=== PATIENT | female | born 1980 | race Caucasian/White ===

== ENCOUNTER 2021-06-20 21:22 | Inpatient (IN) | payer OTHER ==
[~2021-06-20] VITALS: Ht 160 cm; Wt 56.8 kg
[2021-06-20] MEDS ORDERED: magnesium 4gm in 100ml NS 100 ML IV PRN (22:15)
[2021-06-20] MEDS ORDERED: acetaminophen 325mg tablet PO PRN (22:15)
[2021-06-20] MEDS ORDERED: magnesium Cl slow-release 64mg tablet PO PRN (22:15)
[2021-06-20] MEDS ORDERED: potassium Cl 20 mEq SR tablet PO PRN (22:15)
[2021-06-20] MEDS ORDERED: magnesium 2GM in 50ml NS 50 ML IV PRN (22:15)
[2021-06-20] MEDS ORDERED: potassium CL 10mEq/100ml bag 100 ML IV PRN (22:15)
[2021-06-20] MEDS ORDERED: magnesium hydroxide 30ml (MOM) UD suspension PO PRN (22:15)
[2021-06-20] MEDS ORDERED: ondansetron/PF 4mg/2ml inj IV PRN (22:15)
[2021-06-20] MEDS: normal saline 1000ml 1,000 ML IV SCH (22:36)
[2021-06-20] MEDS: HYDROmorphone inj. 0.5 MG/0.5 ML DISP.SYRIN IV PRN (22:44)
[2021-06-20 22:48] LABS: MAGNESIUM 1.8 MG/DL (1.5-2.4); POTASSIUM 3.3 MMOL/L (3.5-5.1)
--- NOTE | 2021-06-20 23:05 | NUR ---
Patient in room [facility]. I have received report from DULCE RN in ER and had the opportunity to ask questions and assume patient care. Patient will be taken to OR for a raptured appendix.
[2021-06-20] MEDS ORDERED: BIRTH CONTROL PO (23:07)
[2021-06-21] VITALS (18 sets, daily range): BP systolic 99–121; BP diastolic 51–80
[2021-06-21] MEDS: piperacillin/tazo 3.375gm/50ml 50 ML IV SCH ×4 (00:03→23:47)
[2021-06-21] MEDS: HYDROmorphone/PF 0.2 MG/ML SYRINGE IV PRN ×4 (00:27→10:10)
[2021-06-21] MEDS ORDERED: hydrALAZINE 20mg/ml inj. IV PRN ×2 (01:15→09:45)
[2021-06-21] MEDS ORDERED: ondansetron/PF 4mg/2ml inj IV PRN ×2 (01:15→09:20)
[2021-06-21] MEDS ORDERED: labetalol 20mg/4ml (5mg/ml) syringe IV PRN ×2 (01:15→09:45)
[2021-06-21] MEDS ORDERED: HYDROmorphone/PF 0.2 MG/ML SYRINGE IV PRN ×3 (01:15→09:45)
[2021-06-21] MEDS ORDERED: ringers solution, lacted 1,000 ML IV SCH (01:15)
[2021-06-21] MEDS ORDERED: fentaNYL/PF 50MCG/1 ML 2ML syringe IV PRN ×3 (01:15→09:45)
[2021-06-21] MEDS ORDERED: BUPIVAcaine 0.5% inj/PF 30 ML ONE (06:02)
[2021-06-21 06:09] LABS: POTASSIUM 3.4 MMOL/L (3.5-5.1)
--- NOTE | 2021-06-21 06:11 | NUR ---
Student Medication Administration: For this medication-pass time frame, all medication were reviewed, dispensed, administered and documented per hospital policy by ADIA RAYO. Addendum: 06/21/21 at 0629 by Za Oakley RN daia abdi
--- NOTE | 2021-06-21 06:11 | NUR ---
Student documentation: I have reviewed and agree with all interventions, assessments performed and documented by LAVON RAYO. Addendum: 06/21/21 at 0629 by Za Oakley RN LAVON SALGADO
--- NOTE | 2021-06-21 06:12 | NUR ---
Problems reprioritized. Patient report given, questions answered & plan of care reviewed with REZA RAYO.
--- NOTE | 2021-06-21 06:17 | NUR ---
Patient in room [facility]. I have received report from GIRMA Mendenhall and had the opportunity to ask questions and assume patient care.
[2021-06-21 06:37] LABS: APTT 28 SECONDS (22-32)
[2021-06-21] MEDS: potassium Cl 20 mEq SR tablet PO PRN ×3 (07:03→23:46)
[2021-06-21] MEDS: docusate sod 100mg capsule PO SCH ×2 (07:13→20:05)
[2021-06-21] MEDS ORDERED: midazolam 1 mg/ML 2ml injection ONE (07:39)
[2021-06-21] MEDS ORDERED: FENTANYL CITRATE/PF 50 MCG/1 ML VIAL ONE (07:39)
[2021-06-21] MEDS ORDERED: glycopyrrolate 0.2mg/ml inj ONE (07:40)
[2021-06-21] MEDS ORDERED: LIDOcaine 2% (20mg/ml) 5ml vial ONE (07:40)
[2021-06-21] MEDS ORDERED: propofol inj 20 ML IV ONE (07:40)
[2021-06-21] MEDS ORDERED: ondansetron/PF 4mg/2ml inj ONE (07:41)
[2021-06-21] MEDS ORDERED: rocuronium 10mg/ml inj IV ONE (07:41)
[2021-06-21] MEDS ORDERED: neostigmine methylsulfate 1 MG/ML 10ml vial ONE (07:41)
[2021-06-21] MEDS: K and/or MAG REPLACEMENT MC SCH ×2 (08:04→20:22)
[2021-06-21] MEDS ORDERED: sevoflurane 250ml liquid IH ONE (08:05)
[2021-06-21] MEDS ORDERED: dexamethasone sod phosphate 10mg/ml inj ONE (08:05)
[2021-06-21] MEDS: normal saline 1000ml 1,000 ML IV SCH ×2 (08:20→10:44)
[2021-06-21] MEDS ORDERED: metoprolol tartrate 1mg/ml inj IV ONE (08:22)
--- NOTE | 2021-06-21 08:58 | NUR ---
Arrived in pt's room for hourly rounding. Pt sent to OR without prior notice. Called to give report, spoke to Rishabh, "nope, we are good"- refused report. CN notified.
[2021-06-21] MEDS ORDERED: HYDROcodone/acetaminophen 5mg/325mg tablet PO PRN (09:20)
--- NOTE | 2021-06-21 09:20 | NUR ---
Received from OR via BED, 20G TO RIGHT AC, LAP SITES X3 WITH BAINDAIDS CYNTHIA DRAIN WITH BLOODY DRAINAGE., accompanied by Anesthesiologist DR MCINTYRE and report given by Anesthesiolgist. Addendum: 06/21/21 at 0940 by Alesha Menchaca RN Amended: Links added.
[2021-06-21] MEDS: fentaNYL/PF 50MCG/1 ML 2ML syringe IV PRN ×2 (09:56→10:10)
[2021-06-21] MEDS: potassium CL 20mEq in D5-1/2NS 1,000 ML IV SCH ×3 (10:37→21:40)
--- NOTE | 2021-06-21 10:41 | NUR ---
PATIENT HAS MET ALL CRITERIA FOR TRANSFER TO THE SURGICAL FLOOR. VSS. DRESSINGS X3 TO LAP SITES INTACT CYNTHIA DRAIN WITH SERO-SANG. BED LOW, CALL LIGHT PRESENT AND 2 RAILS UP. RN PRESENT TO ACCEPT CARE OF PATIENT AND REPORT HAS BEEN CALLED. ALL QUESTIONS ANSWERED TO ACCEPTING RN. Addendum: 06/21/21 at 1042 by Alesha Menchaca RN Amended: Links added.
[2021-06-21] MEDS: HYDROmorphone inj. 0.5 MG/0.5 ML DISP.SYRIN IV PRN ×2 (10:44→13:27)
[2021-06-21] MEDS ORDERED: naloxone 0.4 mg/ml inj IV PRN (15:40)
[2021-06-21] MEDS: HYDROmorph./NS 0.2 mg/ml CADD 50 ML IV SCH ×5 (16:40→23:00)
--- NOTE | 2021-06-21 18:40 | NUR ---
Patient in room [facility]. I have received report from Amy Rodriguez RN and had the opportunity to ask questions and assume patient care.
[2021-06-21] MEDS: ketorolac tromethamine 15mg/ml inj. IV PRN (18:59)
--- NOTE | 2021-06-21 19:07 | NUR ---
EVAPORATOR OPERATOR MOLASSES pump reading inadvertently cleared. Total mg infused not documented. Pharmacy notified. CN Nurse notified.
[2021-06-21] MEDS ORDERED: ketorolac trometh. 30mg/ml inj. IV SCH (20:00)
--- NOTE | 2021-06-21 20:00 | NUR ---
1900 cadd pump setting were done by day nurse. 1999 settings =38.7mg in cassette, 0.2 demand dose [id number],5/5 for 2.00mg used.
[2021-06-21] MEDS: enoxaparin 40mg/0.4ml syringe SUBCUT SCH (20:21)
[2021-06-21] MEDS: ALPRAZolam 0.25mg tablet PO PRN (21:39)
[2021-06-22] VITALS: BP 117/74
[2021-06-22] MEDS: HYDROmorph./NS 0.2 mg/ml CADD 50 ML IV SCH ×12 (01:00→23:00)
[2021-06-22] MEDS: ketorolac tromethamine 15mg/ml inj. IV PRN ×4 (02:25→21:28)
[2021-06-22] MEDS: normal saline 1000ml 1,000 ML IV SCH ×2 (04:15→14:15)
[2021-06-22] MEDS: potassium CL 20mEq in D5-1/2NS 1,000 ML IV SCH ×3 (04:53→21:45)
[2021-06-22] MEDS: ALPRAZolam 0.25mg tablet PO PRN ×2 (05:30→21:26)
--- NOTE | 2021-06-22 06:32 | NUR ---
Problems reprioritized. Patient report given, questions answered & plan of care reviewed with Amy Dale RN.
[2021-06-22 06:36] LABS: BASOPHILS # (AUTO) 0.1 X10'3 (0-0.2); BASOPHILS % (AUTO) 0.5 % (0-1); EOSINOPHILS % (AUTO) 0.1 % (0-6); HEMATOCRIT 32.9 % (35.0-45.0); LYMPHOCYTES # (AUTO) 0.5 X10'3 (1.1-4.8); LYMPHOCYTES % (AUTO) 4.3 % (21-51); MEAN CORPUSCULAR HEMOGLOBIN 30.8 PG (27.0-31.0); MEAN CORPUSCULAR HGB CONC 33.3 g/dL (33.0-36.5); MEAN CORPUSCULAR VOLUME 92.3 FL (78-98); MEAN PLATELET VOLUME 8.6 FL (7.4-10.4); MONOCYTES # (AUTO) 0.7 X10'3 (0-0.9); MONOCYTES % (AUTO) 6.7 % (2-12); NEUTROPHILS # (AUTO) 9.8 X10'3 (1.8-7.7); NEUTROPHILS % (AUTO) 88.4 % (42-75); PLATELET COUNT 278 X10'3 (140-440); RED BLOOD COUNT 3.56 X10'6 (4.20-5.60); WHITE BLOOD COUNT 11.1 X10'3 (4.5-11.0)
[2021-06-22 06:43] LABS: POTASSIUM 4.2 MMOL/L (3.5-5.1)
--- NOTE | 2021-06-22 06:44 | NUR ---
Patient in room [facility]. I have received report from GIRMA Mackenzie and had the opportunity to ask questions and assume patient care.
[2021-06-22] MEDS: mag hydrox/Alum hydrox/simeth 30ml oral suspension PO PRN ×3 (06:45→21:24)
[2021-06-22 07:00] VITALS: BP 122/69
[2021-06-22] MEDS: piperacillin/tazo 3.375gm/50ml 50 ML IV SCH ×3 (07:25→23:58)
[2021-06-22] MEDS: docusate sod 100mg capsule PO SCH ×2 (07:25→20:29)
[2021-06-22] MEDS: enoxaparin 40mg/0.4ml syringe SUBCUT SCH (07:32)
[2021-06-22] MEDS: K and/or MAG REPLACEMENT MC SCH ×2 (08:24→20:00)
[2021-06-22 11:17] VITALS: BP 110/75
[2021-06-22] MEDS ORDERED: NORG1TAB12 PO (11:18)
--- NOTE | 2021-06-22 18:15 | NUR ---
Patient in room [facility]. I have received report from Amy Dale RN and had the opportunity to ask questions and assume patient care.
[2021-06-22 18:30] VITALS: BP 133/64
[2021-06-23] VITALS: BP 97/50
[2021-06-23] MEDS: normal saline 1000ml 1,000 ML IV SCH ×3 (00:15→20:15)
[2021-06-23] MEDS: HYDROmorph./NS 0.2 mg/ml CADD 50 ML IV SCH ×12 (01:00→23:00)
[2021-06-23] MEDS: ketorolac tromethamine 15mg/ml inj. IV PRN ×4 (03:33→22:07)
[2021-06-23] MEDS: potassium CL 20mEq in D5-1/2NS 1,000 ML IV SCH ×3 (04:48→22:28)
[2021-06-23 05:58] LABS: BASOPHILS % (AUTO) 0.2 % (0-1); EOSINOPHILS # (AUTO) 0.1 X10'3 (0-0.9); EOSINOPHILS % (AUTO) 1.2 % (0-6); HEMOGLOBIN 10.7 g/dl (12.0-16.0); LYMPHOCYTES # (AUTO) 0.9 X10'3 (1.1-4.8); LYMPHOCYTES % (AUTO) 9.3 % (21-51); MEAN CORPUSCULAR HEMOGLOBIN 30.8 PG (27.0-31.0); MEAN CORPUSCULAR HGB CONC 33.3 g/dL (33.0-36.5); MEAN CORPUSCULAR VOLUME 92.4 FL (78-98); MEAN PLATELET VOLUME 7.4 FL (7.4-10.4); MONOCYTES # (AUTO) 0.6 X10'3 (0-0.9); MONOCYTES % (AUTO) 6.7 % (2-12); NEUTROPHILS # (AUTO) 7.9 X10'3 (1.8-7.7); NEUTROPHILS % (AUTO) 82.6 % (42-75); PLATELET COUNT 333 X10'3 (140-440); RED BLOOD COUNT 3.47 X10'6 (4.20-5.60); RED CELL DISTRIBUTION WIDTH 13.2 % (11.5-14.5); WHITE BLOOD COUNT 9.6 X10'3 (4.5-11.0)
--- NOTE | 2021-06-23 06:10 | NUR ---
Problems reprioritized. Patient report given, questions answered & plan of care reviewed with Kaitlin RAYO.
[2021-06-23 06:13] LABS: MAGNESIUM 2.1 MG/DL (1.5-2.4)
--- NOTE | 2021-06-23 06:40 | NUR ---
Patient in room [facility]. I have received report from GIRMA Mackenzie and had the opportunity to ask questions and assume patient care.
[2021-06-23] MEDS: docusate sod 100mg capsule PO SCH ×2 (07:05→20:03)
[2021-06-23] MEDS: piperacillin/tazo 3.375gm/50ml 50 ML IV SCH ×3 (07:05→23:45)
[2021-06-23] MEDS: K and/or MAG REPLACEMENT MC SCH ×2 (07:12→20:00)
[2021-06-23] MEDS: enoxaparin 40mg/0.4ml syringe SUBCUT SCH (07:12)
[2021-06-23 07:32] VITALS: BP 117/75
[2021-06-23] MEDS: mag hydrox/Alum hydrox/simeth 30ml oral suspension PO PRN (08:13)
[2021-06-23 11:23] VITALS: BP 116/63
--- NOTE | 2021-06-23 17:01 | NUR ---
Redness to right lower lateral back outlined. Dr. An in to see patient and aware. Patient states not more pain or discomfort than it has been. Will continue to monitor.
[2021-06-23] MEDS: CADD PCA waste documentation MC PRN (17:40)
--- NOTE | 2021-06-23 18:28 | NUR ---
Problems reprioritized. Patient report given, questions answered & plan of care reviewed with GIRMA Mackenzie.
--- NOTE | 2021-06-23 18:30 | NUR ---
Patient in room [facility]. I have received report from Kaitlin RAYO and had the opportunity to ask questions and assume patient care.
[2021-06-23 19:00] VITALS: BP 112/68
[2021-06-23] MEDS: ALPRAZolam 0.25mg tablet PO PRN (22:06)
[2021-06-24] VITALS: BP 113/54
[2021-06-24] MEDS: HYDROmorph./NS 0.2 mg/ml CADD 50 ML IV SCH ×7 (01:00→13:00)
[2021-06-24] MEDS: potassium CL 20mEq in D5-1/2NS 1,000 ML IV SCH (05:30)
[2021-06-24 05:56] LABS: BASOPHILS % (AUTO) 0.3 % (0-1); EOSINOPHILS # (AUTO) 0.2 X10'3 (0-0.9); EOSINOPHILS % (AUTO) 2.2 % (0-6); HEMATOCRIT 34.5 % (35.0-45.0); HEMOGLOBIN 11.4 g/dl (12.0-16.0); LYMPHOCYTES # (AUTO) 0.9 X10'3 (1.1-4.8); LYMPHOCYTES % (AUTO) 10.5 % (21-51); MEAN CORPUSCULAR HEMOGLOBIN 30.8 PG (27.0-31.0); MEAN CORPUSCULAR HGB CONC 33.1 g/dL (33.0-36.5); MEAN CORPUSCULAR VOLUME 92.9 FL (78-98); MEAN PLATELET VOLUME 7.4 FL (7.4-10.4); MONOCYTES # (AUTO) 0.7 X10'3 (0-0.9); MONOCYTES % (AUTO) 7.8 % (2-12); NEUTROPHILS # (AUTO) 6.9 X10'3 (1.8-7.7); NEUTROPHILS % (AUTO) 79.2 % (42-75); PLATELET COUNT 391 X10'3 (140-440); RED BLOOD COUNT 3.72 X10'6 (4.20-5.60); RED CELL DISTRIBUTION WIDTH 13.3 % (11.5-14.5); WHITE BLOOD COUNT 8.7 X10'3 (4.5-11.0)
[2021-06-24 06:07] LABS: MAGNESIUM 2.3 MG/DL (1.5-2.4); POTASSIUM 3.7 MMOL/L (3.5-5.1)
[2021-06-24] MEDS: normal saline 1000ml 1,000 ML IV SCH (06:15)
--- NOTE | 2021-06-24 06:27 | NUR ---
I reviewed the physical assessment completed by nursing home manager at 1920, and agree with the findings.
[2021-06-24 07:00] VITALS: BP 129/85
[2021-06-24 07:14] VITALS: BP 129/85
[2021-06-24] MEDS: K and/or MAG REPLACEMENT MC SCH ×2 (07:21→19:36)
[2021-06-24] MEDS: piperacillin/tazo 3.375gm/50ml 50 ML IV SCH (07:58)
[2021-06-24] MEDS: docusate sod 100mg capsule PO SCH ×2 (07:58→19:43)
[2021-06-24] MEDS: enoxaparin 40mg/0.4ml syringe SUBCUT SCH (08:00)
[2021-06-24 12:30] VITALS: BP 115/89
[2021-06-24] MEDS ORDERED: HYDROcodone/acetaminophen 5mg/325mg tablet PO PRN (13:40)
[2021-06-24] MEDS: CADD PCA waste documentation MC PRN (14:32)
[2021-06-24] MEDS: amox tr/potassium clavulanate 875/125mg TAB PO SCH (17:27)
[2021-06-24] MEDS: HYDROcodone/acetaminophen 10/325mg tab PO PRN ×2 (17:28→22:04)
--- NOTE | 2021-06-24 18:00 | NUR ---
Report given to Spike RAYO. All questions answered at this time. Patient doing very well. Sitting in room, less pain and looking forward to home tomorrow if possible
[2021-06-24] MEDS: magnesium hydroxide 30ml (MOM) UD suspension PO SCH (19:43)
[2021-06-24 20:00] VITALS: BP 123/84
[2021-06-25] VITALS: BP 129/80
[2021-06-25] MEDS: ALPRAZolam 0.25mg tablet PO PRN ×2 (00:35→08:08)
[2021-06-25 06:03] LABS: BASOPHILS % (AUTO) 0.3 % (0-1); EOSINOPHILS # (AUTO) 0.2 X10'3 (0-0.9); EOSINOPHILS % (AUTO) 2.7 % (0-6); HEMATOCRIT 31.8 % (35.0-45.0); HEMOGLOBIN 10.7 g/dl (12.0-16.0); LYMPHOCYTES # (AUTO) 0.9 X10'3 (1.1-4.8); LYMPHOCYTES % (AUTO) 14.2 % (21-51); MEAN CORPUSCULAR HEMOGLOBIN 30.9 PG (27.0-31.0); MEAN CORPUSCULAR HGB CONC 33.7 g/dL (33.0-36.5); MEAN CORPUSCULAR VOLUME 91.6 FL (78-98); MEAN PLATELET VOLUME 7.2 FL (7.4-10.4); MONOCYTES # (AUTO) 0.7 X10'3 (0-0.9); MONOCYTES % (AUTO) 10.6 % (2-12); NEUTROPHILS # (AUTO) 4.6 X10'3 (1.8-7.7); NEUTROPHILS % (AUTO) 72.2 % (42-75); PLATELET COUNT 372 X10'3 (140-440); RED BLOOD COUNT 3.48 X10'6 (4.20-5.60); RED CELL DISTRIBUTION WIDTH 12.8 % (11.5-14.5); WHITE BLOOD COUNT 6.4 X10'3 (4.5-11.0)
[2021-06-25 07:22] LABS: ALBUMIN 2.6 G/DL (3.4-5.0); ANION GAP 14 (8-16); BLOOD UREA NITROGEN 4 MG/DL (7-18); BUN/CREATININE RATIO 7.8 (6.6-38.0); CALCIUM 8.9 MG/DL (8.5-10.1); CHLORIDE 102 MMOL/L (99-107); CREATININE 0.51 MG/DL (0.40-0.90); GLUCOSE 95 MG/DL (70-104); POTASSIUM 3.4 MMOL/L (3.5-5.1); SODIUM 140 MMOL/L (135-145); TOTAL CARBON DIOXIDE 23.7 MMOL/L (24-32); eGFR > 90 ML/MIN
[2021-06-25 07:45] VITALS: BP 125/67
[2021-06-25] MEDS: enoxaparin 40mg/0.4ml syringe SUBCUT SCH (08:00)
[2021-06-25] MEDS: amox tr/potassium clavulanate 875/125mg TAB PO SCH (08:07)
[2021-06-25] MEDS: docusate sod 100mg capsule PO SCH (08:08)
[2021-06-25] MEDS: magnesium hydroxide 30ml (MOM) UD suspension PO SCH (08:08)
[2021-06-25] MEDS: K and/or MAG REPLACEMENT MC SCH (08:09)
[2021-06-25] MEDS ORDERED: AMOX-419 PO (10:39)
--- NOTE | 2021-06-25 10:54 | NUR ---
DCd PT CYNTHIA DRAIN. PT TOLERATED WELL.
--- NOTE | 2021-06-25 11:41 | NUR ---
DISCHARGE NOTE: DISCHARGE PAPERWORK REVIEWED WITH PT. DISCUSSED MEDICATION, POSSIBLE ASE, PREFERRED PHARMACY, INCISIONAL CARE, S/SX INFECTION, F/U KENNEY. AND CARE, DIET, WEIGHT RESTRICTION, AND WHEN TO BE CONCERNED AND CALL THE MD. PT. HAS GOOD VERBAL FEEDBACK. HER IS HERE TO PICK HER UP. BOTH PIVS DC'D, CANNULA INTACT, PRESSURE BANDAGE APPLIED, NO S/SX BLEEDING NOTED. PT DENIES THE NEED FOR ANY PAIN MEDICATION AT THIS TIME BUT STATES IF SHE FEELS LIKE SHE NEEDS SOME LATER SHE WILL CALL [facility] OFFICE. CONTACT INFORMATION PROVIDED WELL. PT LEFT WITH BELONGINGS.
== END 2021-06-25 12:10 | disposition home or self-care (01) | DRG 340 ==
LOC: ER 21:25 → ED HOLD 22:18 → SUR 3N 23:15
PROVIDERS: ADMIT Internal Medicine; ATTEND Internal Medicine
PROC: 0DTJ4ZZ Resection of Appendix, Percutaneous Endoscopic Approach (ICD-10-PCS; principal; 2021-06-21 08:05)
DX: K35.32 Acute appendicitis with perforation, localized peritonitis, and gangrene, without abscess (principal); Z88.8 Allergy status to other drugs, medicaments and biological substances
CPT/HCPCS: 99285; Z7506; Z7508; 36415; 80048; 82948; 83735; 84132; 85025; 85610; 85730; 87081; A4215; A4618; A7000; G0378; J1100; J1170; J1650; J1885; J2250; J2405; J2543; J2704; J2710; J3010; J3480; J3490; J7030; J7120; S0020